=== PATIENT | male | born 1990 | race Caucasian/White ===

== ENCOUNTER 2017-02-21 15:09 | Emergency (ER) | payer MEDICAID ==
[~2017-02-21] VITALS: Ht 175.3 cm; Wt 81.6 kg
[2017-02-21 15:15] VITALS: BP 178/84
--- NOTE | 2017-02-21 15:15 | NUR ---
Patient to bed 08.
[2017-02-21] MEDS ORDERED: IBUPROFEN 800 MG TAB PO ONE (16:05)
--- NOTE | 2017-02-21 16:09 | NUR ---
KNEE XR COMPLETED.
--- NOTE | 2017-02-21 16:43 | NUR ---
DISPO AND MEDICAL DECISION MAKING, DC HOME WITH INSTRUCTIONS, UNDERSTOOD BY PATIENT ACCORDINGLY. KNEE BRACE APPLIED TO RIGHT KNEE, [employer] INTACT. VSWNL, PAIN TOLERABLE.
[2017-02-21 16:51] VITALS: BP 100/58
== END 2017-02-21 16:51 | disposition home or self-care (01) ==
LOC: MED 15:09
DX: S83.8X1A Sprain of other specified parts of right knee, initial encounter (principal); W18.40XA Slipping, tripping and stumbling without falling, unspecified, initial encounter; Y93.89 Activity, other specified; Y92.89 Other specified places as the place of occurrence of the external cause; Y99.8 Other external cause status
CPT/HCPCS: 73562; 99284